=== PATIENT | male | born 1960 | race Hispanic/Latino ===

== ENCOUNTER 2017-03-07 08:49 | Day surgery (SDC) | payer MEDICAID ==
[2017-03-07 09:13] VITALS: BMI 32.3
[2017-03-07 11:41] VITALS: O2SAT 100
[2017-03-07] MEDS ORDERED: Midazolam 2 MG/2 ML VIAL ONE (11:45)
[2017-03-07] MEDS ORDERED: Lactated Ringer's 500 ML IV SCH (12:00)
[2017-03-07 18:07] VITALS: RESP 16; TEMP 97.8
[2017-03-07 18:11] VITALS: BP 142/86; PULSE 61
== END 2017-03-07 13:20 | disposition home or self-care (01) ==
LOC: C.ENDO 08:49
PROVIDERS: ATTEND Internal Medicine Gastroenterology
DX: Z12.11 Encounter for screening for malignant neoplasm of colon (principal)
CPT/HCPCS: 45378; J2250; J7120

== ENCOUNTER → 2018-05-08 | Day surgery (SDC) | payer MEDICAID ==
[~2018-05-08] MED LIST: Propofol 10 mg/ml Inj (20 ML) ONE
[2018-05-08 09:26] VITALS: PULSE 80; BMI 31.7
--- NOTE | 2018-05-08 10:59 | CP.SDSHP ---
Same Day Surgery H & P - History Proposed Procedure: colonoscopy Pre-Op Diagnosis: screening - Allergies Allergies: Allergies No Known Allergies Allergy (Verified 05/08/18 09:26) - Physical Exam General Appearance: NAD Vital Signs: Vital Signs 05/08/18 09:18 Temperature 97.3 F L Pulse Rate 80 Respiratory 16 Rate Blood Pressure 139/78 O2 Sat by Pulse 97 Oximetry Mental Status: Alert & Oriented x3 Neuro: WNL Heart: WNL Lungs: WNL GI: WNL - {Optional Preform as Required} Abdomen: WNL - Impression Pt. Evaluated Today:Candidate for Anesthesia & Procedure: Yes - Date & Time Date: 05/08/18 Time: 10:58 Short Stay Discharge - Short Stay Discharge Admitting Diagnosis/Reason for Visit: SCREENING, PROCEDURE AND TREATMENT NOT CARRIED OUT Disposition: HOME/ ROUTINE
[2018-05-08 13:57] VITALS: BP 117/89; RESP 12; TEMP 99.3; O2SAT 98
== END | disposition home or self-care (01) ==
LOC: C.ENDO 08:53
PROVIDERS: ATTEND Internal Medicine Gastroenterology
DX: Z12.11 Encounter for screening for malignant neoplasm of colon (principal); Z53.8 Procedure and treatment not carried out for other reasons; K64.3 Fourth degree hemorrhoids
CPT/HCPCS: 45378; 82948; J7040; J7070